=== PATIENT | female | born 1925 | race Caucasian/White ===

== ENCOUNTER 2016-12-11 05:53 | Emergency (ER) | payer MEDICARE, BC ==
[2016-12-11] MEDS ORDERED: OXYMETAZOLINE HCL 0.05% NASAL SPRAY 15 ML BOTTLE NASL ONE (06:22)
--- NOTE | 2016-12-11 06:27 | ER Document Report ---
ED General - General Mode of Arrival: Ambulatory Information source: Patient TRAVEL OUTSIDE OF THE [place] IN LAST 30 DAYS: No - HPI Patient complains to provider of: Nose Bleed Onset: Yesterday Onset/Duration: Sudden, Intermittent Associated symptoms: None <ASTRID TIJERINA - Last Filed: 12/11/16 06:40> <PAUL HALE - Last Filed: 12/11/16 07:40> - General Chief Complaint: Nose Bleed Stated Complaint: NOSE BLEED Time Seen by Provider: 12/11/16 06:12 Notes: Patient is an 89-year-old female presenting to the emergency department concerned. Onset yesterday early afternoon. Patient states that she called EMS , they treated her by pinching her nose, using ice, and aspirin, and the nosebleed resolved. Very early this morning when she got up to use the restroom her nose began to bleed again, worse than yesterday afternoon, so she decided to come into the emergency department via EMS. Patient states that she takes a baby aspirin and Coumadin daily. Patient reports falling 2 weeks ago on her face, she bled a little bit, but it quickly resolved. Other than the patient's nosebleed, patient states that she feels pretty well. (ASTRID TIJERINA) Past Medical History - General Information source: Patient - Social History Smoking Status: Never Smoker Family History: Reviewed & Not Pertinent - Past Medical History Cardiac Medical History: Reports: Hx Atrial Fibrillation, Hx Coronary Artery Disease GI Medical History: Reports: Other - Ventral hernia rupture <ASTRID TIJERINA - Last Filed: 12/11/16 06:40> Review of Systems - Review of Systems Constitutional: No symptoms reported EENT: See HPI, Nose discharge - Bloody nose- right nostril Cardiovascular: No symptoms reported Respiratory: No symptoms reported Gastrointestinal: No symptoms reported Genitourinary: No symptoms reported Female Genitourinary: No symptoms reported Musculoskeletal: No symptoms reported Skin: No symptoms reported Hematologic/Lymphatic: No symptoms reported Neurological/Psychological: No symptoms reported -: Yes All other systems reviewed and negative <ASTRID TIJREINA - Last Filed: 12/11/16 06:40> Physical Exam - General General appearance: Appears well, Alert - HEENT Head: Normocephalic, Atraumatic Eyes: Normal Pupils: PERRL Nasal: Other - Large blood clot noted inside the right nostril, not actively bleeding - Respiratory Respiratory status: No respiratory distress Chest status: Nontender Breath sounds: Normal Chest palpation: Normal - Cardiovascular Rhythm: Regular Heart sounds: Normal auscultation Murmur: No - Abdominal Inspection: Normal Tenderness: Nontender - Back Back: Normal, Nontender - Extremities General upper extremity: Normal inspection, Nontender General lower extremity: Normal inspection, Nontender - Neurological Neuro grossly intact: Yes Cognition: Normal Orientation: AAOx4 Brewer Coma Scale Eye Opening: Spontaneous Rashid Coma Scale Verbal: Oriented Rashid Coma Scale Motor: Obeys Commands Rashid Coma Scale Total: 15 Speech: Normal - Psychological Associated symptoms: Normal affect, Normal mood - Skin Skin Temperature: Warm Skin Moisture: Dry Skin Color: Ecchymosis - Bruising over right extremities secondary to fall a couple of weeks ago <ASTRID TIJERINA - Last Filed: 12/11/16 06:40> Course - Laboratory Result Diagrams: 12/11/16 06:27 12/11/16 06:27 <ASTRID TIJERINA - Last Filed: 12/11/16 06:40> - Laboratory Result Diagrams: 12/11/16 06:27 12/11/16 06:27 <PAUL HALE - Last Filed: 12/11/16 07:40> - Re-evaluation Re-evalutation: 12/11/16 06:59 INR is 4.57 12/11/16 06:59 PROCEEDURE: The first clot was removed from the right nostril. Afrin was sprayed into the nostril several times with the patient sniffing. Minimal bleeding was encountered. An Afrin-soaked cotton ball was fashioned into a torpedo shape and placed into the nostril on the right side. (PAUL HALE) - Vital Signs Vital signs: Temp Pulse Resp BP Pulse Ox 97.5 F 84 18 166/67 H 100 12/11/16 06:12 12/11/16 06:12 12/11/16 06:12 12/11/16 06:12 12/11/16 06:12 - Laboratory Laboratory results interpreted by me: 12/11/16 12/11/16 12/11/16 06:27 06:27 06:27 WBC 3.9 L RBC 2.61 L Hgb 10.0 L Hct 29.3 L MCV 113 H MCH 38.2 H RDW 18.5 H Seg Neutrophils % 79.6 H Monocytes % 1.9 L PT 45.1 H Sodium 133.2 L Chloride 96 L BUN 35 H Est GFR ( Amer) 55 L Est GFR (Non-Af Amer) 45 L Direct Bilirubin 0.6 H AST 56 H Albumin 3.3 L Discharge <SHAWNEE TIJERINAICA - Last Filed: 12/11/16 06:40> <PAUL HALE - Last Filed: 12/11/16 07:40> - Discharge Clinical Impression: Anterior epistaxis, Excessive anticoagulation Condition: Stable Disposition: HOME, SELF-CARE Additional Instructions: Nosebleed Instructions: There is a significant chance of re-bleeding following a nosebleed. Proper care makes this less likely. Do not touch the nose for 24 hours. Do not blow the nose forcefully for one week. After 24 hours, gently apply Vaseline ointment to both nostrils with the tip of a finger, three times a day, for one week. It's normal to have a bloody mucous discharge for a few days. If active bleeding recurs, blow all the blood from the nose, then sit quietly and pinch the nose as firmly as possible for 10 minutes. If this does not stop the bleeding, return for further care. If packing was left in the nose and it starts to come out of the nostril, either tuck it back in or cut it off. Don't pull it out. Return for recheck and removal of the packing when instructed. Persons with frequent nosebleeds should avoid aspirin (unless prescribed for another reason). Humidity in the bedroom, and petroleum jelly applied to the nostrils at night may help. Removed the Afrin-soaked cotton ball in about 1 hour. Do not take your Coumadin until you see your primary care provider tomorrow. Use the Afrin spray and Afrin soaked cotton balls as demonstrated here today if you have recurrence of bleeding. Put a small amount of Vaseline into each nostril 3 times daily and at bedtime for the next several days. Avoid blowing your nose, avoid bending over, avoid straining. Follow-up with Dr. Tucker tomorrow. RETURN TO THE EMERGENCY ROOM IF ANY NEW OR WORSENING SYMPTOMS. Referrals: KAILEY TUCKER MD [Primary Care Provider] - Follow up as needed Scribe Attestation: 12/11/16 07:40 I personally performed the services described in the documentation, reviewed and edited the documentation which was dictated to the scribe in my presence, and it accurately records my words and actions. (PAUL HALE) Scribe Documentation - Scribe Written by Eliot:: Eliot Francois, [id number] acting as scribe for :: Zia <ASTRID TIJERINA - Last Filed: 12/11/16 06:40>
[2016-12-11 06:50] LABS: ABSOLUTE LYMPHOCYTES (AUTO) 0.7 10^3/uL (0.5-4.7); ABSOLUTE MONOCYTES (AUTO) 0.1 10^3/uL (0.1-1.4); ABSOLUTE NEUT (AUTO) 3.1 10^3/uL (1.7-8.2); BASOPHILS % (AUTO) 0.8 % (0-2); EOSINOPHILS % (AUTO) 0.1 % (0-6); HEMATOCRIT 29.3 % (36.0-47.0); HGB HCT DIFFERENCE 0.7; LYMPHOCYTES % (AUTO) 17.6 % (13-45); MEAN CORPUSCULAR HEMOGLOBIN 38.2 pg (27.0-33.4); MEAN CORPUSCULAR VOLUME 113 fl (80-97); MONOCYTES % (AUTO) 1.9 % (3-13); RED BLOOD COUNT 2.61 10^6/uL (3.72-5.28); RED CELL DISTRIBUTION WIDTH 18.5 % (11.5-14.0); SEGMENTED NEUTROPHILS % (AUTO) 79.6 % (42-78); WHITE BLOOD COUNT 3.9 10^3/uL (4.0-10.5)
[2016-12-11 06:54] LABS: PROTHROMBIN TIME 45.1 SEC (11.4-15.4)
[2016-12-11 07:00] LABS: ALANINE AMINOTRANSFERASE 49 U/L (9-52); ALBUMIN 3.3 g/dL (3.5-5.0); ALKALINE PHOSPHATASE 81 U/L (38-126); ANION GAP 8 (5-19); ASPARTATE AMINO TRANSFERASE 56 U/L (14-36); BILIRUBIN,DIRECT 0.6 mg/dL (0.0-0.4); BILIRUBIN,TOTAL 1.1 mg/dL (0.2-1.3); BLOOD UREA NITROGEN 35 mg/dL (7-20); CALCIUM 9.2 mg/dL (8.4-10.2); CARBON DIOXIDE 29 mmol/L (22-30); CHLORIDE 96 mmol/L (98-107); CREATININE RESULT 1.13 mg/dL (0.52-1.25); GLUCOSE 99 mg/dL (75-110); POTASSIUM 3.9 mmol/L (3.6-5.0); SODIUM 133.2 mmol/L (137-145); TOTAL PROTEIN 8.2 g/dL (6.3-8.2)
[2016-12-11 07:33] LABS: ANISOCYTOSIS 2+; HYPOCHROMASIA SLIGHT; OVALOCYTES SLIGHT; POIKILOCYTOSIS SLIGHT; POLYCHROMASIA SLIGHT
[2016-12-11 08:10] VITALS: BP 152/70
== END 2016-12-11 08:10 | disposition home or self-care (01) ==
LOC: ER 05:53
PROC: 2Y41X5Z Packing of Nasal Region using Packing Material (ICD-10-PCS; principal; 2016-12-11)
DX: R04.0 Epistaxis (principal); I48.91 Unspecified atrial fibrillation; I25.10 Atherosclerotic heart disease of native coronary artery without angina pectoris; Z79.82 Long term (current) use of aspirin; Z79.01 Long term (current) use of anticoagulants; Z91.81 History of falling
CPT/HCPCS: 30901; 99283; 36415; 85025; 85610; 80053; J3490

== ENCOUNTER 2017-01-02 09:08 | Observation (INO) | payer MEDICARE, BC ==
--- NOTE | 2017-01-02 09:15 | ER Document Report ---
ED Dizziness/Weakness - General Chief Complaint: General Weakness Stated Complaint: WEAKNESS Time Seen by Provider: 01/02/17 09:13 Mode of Arrival: Ambulatory Information source: Patient Notes: Is an 89-year-old female who presents to the ER via EMS from home where she lives with her daughter for generalized weakness for the past 2 days. Patient has a history of getting weak with urinary tract infection. Daughter states that she cannot even help her move or lift her because she is so weak. Patient denies any pain anywhere, dysuria, shortness of breath, cough, other sick symptoms. Is currently on a compound of topical antibiotics for her left eye as she had conjunctivitis that was cultured and diagnosed with MRSA, she has been on these antibiotics for 2 weeks topically. TRAVEL OUTSIDE OF THE [place] IN LAST 30 DAYS: No - Related Data Allergies/Adverse Reactions: Sulfa (Sulfonamide Antibiotics) Allergy (Verified 01/02/17 09:14) Past Medical History - General Information source: Patient, Relative - Social History Smoking Status: Unknown if Ever Smoked Family History: Reviewed & Not Pertinent - Past Medical History Cardiac Medical History: Reports: Hx Atrial Fibrillation, Hx Coronary Artery Disease, Hx Hypertension Review of Systems - Review of Systems Constitutional: See HPI. denies: Chills, Fever EENT: See HPI Cardiovascular: No symptoms reported Respiratory: No symptoms reported Gastrointestinal: No symptoms reported Genitourinary: No symptoms reported Female Genitourinary: No symptoms reported Musculoskeletal: No symptoms reported Skin: No symptoms reported Hematologic/Lymphatic: No symptoms reported Neurological/Psychological: No symptoms reported Physical Exam - Vital signs Vitals: Resp Pulse Ox 24 H 100 01/02/17 09:10 01/02/17 09:10 - Notes Notes: PHYSICAL EXAMINATION: GENERAL: elderly, weak appearing but in no acute distress. HEAD: Atraumatic, normocephalic. EYES: Pupils equal round and reactive to light, extraocular movements intact, sclera anicteric, conjunctiva with watery discharge from left eye, eye closed with ointment ENT: ear canals without erythema or foreign body, TMs pearly macario with good bony landmarks, nares patent, oropharynx clear without exudates. Moist mucous membranes. Airway patent NECK: Normal range of motion, supple without lymphadenopathy LUNGS: CTAB and equal. No wheezes rales or rhonchi. HEART: Regular rate and rhythm without murmurs ABDOMEN: Soft, no tenderness. No guarding, no rebound BACK: no vertebral tenderness, normal ROM GI/: no CVA tenderness EXTREMITIES: Normal range of motion, no pitting edema. No cyanosis. NEUROLOGICAL: slower to answer questions, but alert and oriented x 3 Cranial nerves grossly intact. Normal sensory/motor exams. SKIN: Warm, Dry, normal turgor, no rashes or lesions noted Course - Re-evaluation Re-evalutation: 01/02/17 12:42 Is actually pretty unremarkable today with a lower than normal white blood cell count, low sodium which daughter states is normal for patient, normal chest x- ray and a normal urinalysis. Patient did present with a fever of 101.3F. Not have an explanation the patient's fever today, due to her age, generalized weakness and fever, Dr. Valenzuela, hospitalist agreed to admit patient at this time. - Vital Signs Vital signs: Temp Pulse Resp BP Pulse Ox 97.6 F 21 H 112/63 100 01/02/17 12:38 01/02/17 12:01 01/02/17 12:01 01/02/17 12:01 - Laboratory Result Diagrams: 01/02/17 09:28 01/02/17 09:28 Laboratory results interpreted by me: 01/02/17 01/02/17 01/02/17 09:28 09:28 09:55 WBC 2.3 L RBC 2.96 L Hgb 11.6 L Hct 33.4 L MCV 113 H MCH 39.3 H RDW 16.0 H Seg Neutrophils % 82.6 H Monocytes % 2.9 L Absolute Lymphocytes 0.3 L Sodium 129.9 L Chloride 97 L Est GFR ( Amer) 55 L Est GFR (Non-Af Amer) 46 L Direct Bilirubin 0.6 H AST 37 H Creatine Kinase 28 L Albumin 3.1 L Urine Protein 30 H Urine Blood SMALL H Discharge - Discharge Clinical Impression: Weakness Fever Qualifiers: Fever type: unspecified Qualified Code(s): R50.9 - Fever, unspecified Condition: Stable Disposition: ADMITTED INPATIENT Admitting Provider: Hospitalist Unit Admitted: Telemetry
[2017-01-02 09:48] LABS: ABSOLUTE LYMPHOCYTES (AUTO) 0.3 10^3/uL (0.5-4.7); ABSOLUTE MONOCYTES (AUTO) 0.1 10^3/uL (0.1-1.4); ABSOLUTE NEUT (AUTO) 1.9 10^3/uL (1.7-8.2); EOSINOPHILS % (AUTO) 0.2 % (0-6); HEMATOCRIT 33.4 % (36.0-47.0); HEMOGLOBIN 11.6 g/dL (12.0-15.5); HGB HCT DIFFERENCE 1.4; LYMPHOCYTES % (AUTO) 13.3 % (13-45); MEAN CORPUSCULAR HEMOGLOBIN 39.3 pg (27.0-33.4); MEAN CORPUSCULAR HGB CONC 34.8 g/dL (32.0-36.0); MONOCYTES % (AUTO) 2.9 % (3-13); RED BLOOD COUNT 2.96 10^6/uL (3.72-5.28); SEGMENTED NEUTROPHILS % (AUTO) 82.6 % (42-78); WHITE BLOOD COUNT 2.3 10^3/uL (4.0-10.5)
[2017-01-02 09:55] LABS: MEAN CORPUSCULAR VOLUME 113 fl (80-97)
[2017-01-02 10:06] LABS: ANISOCYTOSIS 1+
[2017-01-02 10:07] LABS: OVALOCYTES SLIGHT; POIKILOCYTOSIS SLIGHT; POLYCHROMASIA SLIGHT
[2017-01-02 10:11] LABS: ALANINE AMINOTRANSFERASE 27 U/L (9-52); ALBUMIN 3.1 g/dL (3.5-5.0); ALKALINE PHOSPHATASE 100 U/L (38-126); ANION GAP 8 (5-19); ASPARTATE AMINO TRANSFERASE 37 U/L (14-36); BILIRUBIN,DIRECT 0.6 mg/dL (0.0-0.4); BLOOD UREA NITROGEN 17 mg/dL (7-20); CALCIUM 8.5 mg/dL (8.4-10.2); CARBON DIOXIDE 25 mmol/L (22-30); CHLORIDE 97 mmol/L (98-107); CREATINE KINASE 28 U/L (30-135); CREATININE RESULT 1.12 mg/dL (0.52-1.25); GLUCOSE 110 mg/dL (75-110); POTASSIUM 4.3 mmol/L (3.6-5.0); SODIUM 129.9 mmol/L (137-145); TOTAL PROTEIN 7.5 g/dL (6.3-8.2)
[2017-01-02 10:21] LABS: CREATINE KINASE MB 0.55 ng/mL (<4.55); TROPONIN I 0.017 ng/mL
[2017-01-02 10:39] LABS: APPEARANCE,URINE CLEAR; BILIRUBIN,URINE NEGATIVE (NEGATIVE); GLUCOSE, URINE NEGATIVE (NEGATIVE); KETONES,URINE NEGATIVE (NEGATIVE); LEUKOCYTE ESTERASE,URINE NEGATIVE (NEGATIVE); NITRITE,URINE NEGATIVE (NEGATIVE); PROTEIN,URINE 30 mg/dL (NEGATIVE); URINE SPECIFIC GRAVITY 1.009; UROBILINOGEN,URINE NEGATIVE mg/dL (<2.0)
[2017-01-02 11:01] LABS: URINE BARBITURATES SCREEN NEGATIVE; URINE METHADONE SCREEN NEGATIVE; URINE OPIATES LOW NEGATIVE; URINE PHENCYCLIDINE SCREEN NEGATIVE
[2017-01-02] MEDS ORDERED: NORMAL SALINE 1000 ML 1,000 ML IV ONE (11:13)
[2017-01-02] MEDS ORDERED: ACETAMINOPHEN 325 MG TABLET PO ONE (11:15)
--- NOTE | 2017-01-02 11:51 | RADIOLOGY REPORT (SQ) ---
EXAM DESCRIPTION: CHEST SINGLE VIEW COMPLETED DATE/TIME: 01/02/2017 11:33 am REASON FOR STUDY: weakness, fever COMPARISON: None. EXAM PARAMETERS: NUMBER OF VIEWS: One view. TECHNIQUE: Single frontal radiographic view of the chest acquired. RADIATION DOSE: NA LIMITATIONS: None. FINDINGS: LUNGS AND PLEURA: No opacities, masses or pneumothorax. No pleural effusion. MEDIASTINUM AND HILAR STRUCTURES: No masses. Contour normal. HEART AND VASCULAR STRUCTURES: Heart normal in size. Normal vasculature. BONES: No acute findings. Bone anchors noted in the right humeral head. Osteopenia. HARDWARE: Left chest pacer. EKG leads overlie the chest. OTHER: No other significant finding. IMPRESSION: NO ACUTE RADIOGRAPHIC FINDING IN THE CHEST. TECHNICAL DOCUMENTATION: JOB ID: [id number]
[2017-01-02] MEDS ORDERED: ACETAMINOPHEN 325 MG TABLET PO PRN (17:00)
[2017-01-02] MEDS ORDERED: NORMAL SALINE 1000 ML 1,000 ML IV PRN (17:00)
[2017-01-02] MEDS ORDERED: ONDANSETRON HCL INJ/PF 4 MG/2 ML SDV IV PRN (17:06)
--- NOTE | 2017-01-02 17:19 | PDOC H&P ---
History of Present Illness Admission Date/PCP: 01/02/17 12:33 Patient complains of: Generalized weakness History of Present Illness: ALICIA POWELL is a 89 year old female, with history of hypertension, atrial fibrillation, and reported coronary artery disease presents to the hospital with generalized weakness for the past few days. There is no noted focal weakness nor any slurring of speech or swallowing difficulty. Because of the progressive weakness, the patient was brought to the hospital for evaluation. Daughter reports that she has urinary tract infection every time she is generally weak. In the emergency room she was found to have a fever of 101. WBC however was low. Urinalysis was inconclusive. Chest x-ray did not reveal any acute infiltrate. Patient denies any headache at all nor any neck pain. There is no nausea or vomiting, denies diarrhea dysuria urgency or frequency. There is no cough or shortness of breath. There is no sinus pressure or sore throat. Denies any vaginal discharge or bleeding as well. Denies any insect bites at all. Denies having any rash, nor any recent travel. Denies exposure to sick person with respiratory tract infection. Patient denies having any boils as well. No lower extremity pain or swelling. Denies being impacted. Daughter lives with her at the moment and he noted her to have some confusion. Past Medical History Cardiac Medical History: Reports: Atrial Fibrillation, Coronary Artery Disease, Hypertension EENT Medical History: Reports: Eyes - Recently treated for conjunctivitis Psychiatric Medical History: Reports: Depression Past Surgical History Past Surgical History: Reports: Other - No recent operations. Social History Information Source: Relative Smoking Status: Never Smoker Frequency of Alcohol Use: Rare Hx Recreational Drug Use: No Drugs: None Hx Prescription Drug Abuse: No - Advance Directive Resuscitation Status: Full Code Family History Family History: CAD, Hypertension Parental Family History Reviewed: Yes Children Family History Reviewed: Yes Sibling(s) Family History Reviewed.: Yes Medication/Allergy Home Medications: Aspirin [Ecotrin] 81 mg PO BID 01/02/17 Besifloxacin HCl [Besivance 0.6% Oph Susp 5 ml] 1 drop OU Q8H 01/02/17 Cholecalciferol (Vitamin D3) [Vitamin D3 3000 unit Tablet] 2,000 unit PO DAILY 01/02/17 Furosemide [Lasix 20 mg Tablet] 40 mg PO QAM 01/02/17 Lorazepam [Ativan 1 mg Tablet] 2 mg PO QHS 01/02/17 Multivitamin [Multivitamins] 1 each PO DAILY 01/02/17 Mupirocin [Bactroban 2% Ointment 22 gm] 1 applic OU QHS 01/02/17 Propranolol HCl [Inderal 20 mg Tablet] 20 mg PO Q6H 01/02/17 Allergies/Adverse Reactions: Sulfa (Sulfonamide Antibiotics) Allergy (Verified 01/02/17 09:14) Review of Systems Constitutional: PRESENT: fever(s), weakness - Generalized. ABSENT: chills, headache(s), night sweats, weight gain, weight loss Eyes: ABSENT: visual disturbances Ears: ABSENT: hearing changes Nose, Mouth, and Throat: ABSENT: mouth pain, sore throat Cardiovascular: ABSENT: chest pain, dyspnea on exertion, edema, orthropnea, palpitations Respiratory: ABSENT: cough, dyspnea, hemoptysis, sputum Gastrointestinal: ABSENT: abdominal pain, constipation, diarrhea, hematemesis, hematochezia, melena, nausea, vomiting Genitourinary: ABSENT: difficulty urinating, dysuria, hematuria Musculoskeletal: ABSENT: joint swelling Integumentary: ABSENT: pruritus, rash, wounds Neurological: ABSENT: abnormal gait, abnormal speech, confusion, dizziness, focal weakness, syncope, tremor(s), vertigo Psychiatric: ABSENT: anxiety, depression, homidical ideation, suicidal ideation Endocrine: ABSENT: cold intolerance, heat intolerance, polydipsia, polyphagia, polyuria Hematologic/Lymphatic: ABSENT: easy bleeding, easy bruising, lymphadenopathy Physical Exam Vital Signs: Temp Pulse Resp BP Pulse Ox 97.6 F 76 18 111/65 97 01/02/17 13:41 01/02/17 13:41 01/02/17 14:00 01/02/17 13:41 01/02/17 14:00 General appearance: PRESENT: no acute distress, cooperative, obese Head exam: PRESENT: atraumatic, normocephalic Eye exam: PRESENT: conjunctival injection - Mildly, EOMI, PERRLA, other - There is some mild drainage noted. ABSENT: scleral icterus Ear exam: PRESENT: normal external ear exam. ABSENT: drainage Mouth exam: PRESENT: dry mucosa, neck supple, tongue midline Throat exam: ABSENT: post pharyngeal erythema, tonsillar erythema Neck exam: ABSENT: carotid bruit, JVD, lymphadenopathy, thyromegaly Respiratory exam: PRESENT: clear to auscultation shay - Poor effort, other - No axillary adenopathy noted. ABSENT: rales, rhonchi, wheezes Cardiovascular exam: PRESENT: RRR. ABSENT: diastolic murmur, rubs, systolic murmur Pulses: PRESENT: normal dorsalis pedis pul Vascular exam: PRESENT: normal capillary refill GI/Abdominal exam: PRESENT: normal bowel sounds, soft, other - No inguinal adenopathy. ABSENT: distended, guarding, mass, organolmegaly, rebound, tenderness Rectal exam: PRESENT: deferred Extremities exam: PRESENT: full ROM, other - No redness. ABSENT: calf tenderness, clubbing, pedal edema Neurological exam: PRESENT: alert, awake, oriented to situation, CN II-XII grossly intact. ABSENT: motor sensory deficit Psychiatric exam: PRESENT: appropriate affect, normal mood. ABSENT: homicidal ideation, suicidal ideation Skin exam: PRESENT: dry, intact, warm. ABSENT: cyanosis, rash Results Laboratory Results: 01/02/17 13:17 Lactic Acid 1.1 Impressions: Chest X-Ray 01/02/17 11:13 IMPRESSION: NO ACUTE RADIOGRAPHIC FINDING IN THE CHEST. Assessment & Plan - Diagnosis (1) Hyponatremia Is this a current diagnosis for this admission?: Yes (2) Weakness Is this a current diagnosis for this admission?: Yes (3) Fever Qualifiers: Fever type: unspecified Qualified Code(s): R50.9 - Fever, unspecified Is this a current diagnosis for this admission?: Yes (4) Essential hypertension Is this a current diagnosis for this admission?: Yes (5) Coronary artery disease Qualifiers: Coronary Disease-Associated Artery/Lesion type: [place] artery [place] vs. transplanted heart: [place] heart Associated angina: without angina Qualified Code(s): I25.10 - Atherosclerotic heart disease of [place] coronary artery without angina pectoris Is this a current diagnosis for this admission?: Yes (6) Chronic atrial fibrillation Is this a current diagnosis for this admission?: Yes - Time Time Spent: 50 to 70 Minutes - Plan Summary Plan Summary: The patient will be admitted to observation. We will hydrate the patient with normal saline. Urine culture has been sent to the emergency room. We will follow results. I will hold any antibiotic for now. Patient may have acute viral syndrome. I will hold her diuretics. Continue her beta-ivan. I will put her on antiplatelet therapy for her A. fib. DVT prophylaxis with Lovenox will be placed. I will check a KUB for impaction. Further testing depends on the initial evaluations outlined above.
[2017-01-02] MEDS: VANCOMYCIN OU SCH ×3 (17:51→21:44)
--- NOTE | 2017-01-02 18:40 | RADIOLOGY REPORT (SQ) ---
EXAM DESCRIPTION: KUB/ABDOMEN (SINGLE VIEW) COMPLETED DATE/TIME: 01/02/2017 6:31 pm REASON FOR STUDY: fecal impaction COMPARISON: None. NUMBER OF VIEWS: One view. TECHNIQUE: Supine radiographic image of the abdomen acquired. LIMITATIONS: None. FINDINGS: BOWEL GAS PATTERN: There is a nonobstructive bowel gas pattern. There is stool in the rec [place] but not no large amount of stool in the rest of the colon. CALCIFICATIONS: No suspicious calcifications. SOFT TISSUES: No gross mass or suggestion of organomegaly. HARDWARE: None in the abdomen. BONES: No acute fracture. No worrisome bone lesions. OTHER: No other significant finding. IMPRESSION: There is stool in the rectum that may represent fecal impaction. TECHNICAL DOCUMENTATION: JOB ID: [id number] [employer]- All Rights Reserved
[2017-01-02] MEDS: ASPIRIN 81 MG TABLET, ENT COATED PO SCH (19:56)
[2017-01-02] MEDS: DOCUSATE SODIUM 100 MG CAPSULE PO SCH (19:56)
--- NOTE | 2017-01-02 21:33 | EKG REPORT ---
SEVERITY:- ABNORMAL ECG - ATRIAL FIBRILLATION : Confirmed by: Adelaida Acevedo 02-Jan-2017 21:32:19
[2017-01-02] MEDS: LORAZEPAM 1 MG TABLET PO SCH (21:44)
[2017-01-02] MEDS: BESIFLOXACIN HCL 0.6% OPH SUSP 5 ML BOTTLE OU SCH (21:45)
[2017-01-02] MEDS: PROPRANOLOL HCL 20 MG TABLET PO SCH (23:37)
[2017-01-03] MEDS: BESIFLOXACIN HCL 0.6% OPH SUSP 5 ML BOTTLE OU SCH ×3 (06:14→21:48)
[2017-01-03] MEDS: PROPRANOLOL HCL 20 MG TABLET PO SCH ×3 (06:14→18:17)
[2017-01-03] MEDS: VANCOMYCIN OU SCH ×6 (06:15→21:48)
[2017-01-03] MEDS: LANSOPRAZOLE 30 MG TAB.RAP.DR PO SCH (06:16)
[2017-01-03 07:11] LABS: HEMATOCRIT 28.7 % (36.0-47.0); MEAN CORPUSCULAR HEMOGLOBIN 39.2 pg (27.0-33.4); MEAN CORPUSCULAR HGB CONC 34.8 g/dL (32.0-36.0); RED BLOOD COUNT 2.55 10^6/uL (3.72-5.28); RED CELL DISTRIBUTION WIDTH 15.8 % (11.5-14.0)
[2017-01-03 07:19] LABS: ANION GAP 6 (5-19); BLOOD UREA NITROGEN 17 mg/dL (7-20); CALCIUM 7.7 mg/dL (8.4-10.2); CARBON DIOXIDE 22 mmol/L (22-30); CHLORIDE 103 mmol/L (98-107); CREATININE RESULT 1.02 mg/dL (0.52-1.25); GLUCOSE 87 mg/dL (75-110); POTASSIUM 3.8 mmol/L (3.6-5.0); SODIUM 131.4 mmol/L (137-145)
[2017-01-03 07:32] LABS: HGB HCT DIFFERENCE 1.3
[2017-01-03 07:33] LABS: MEAN CORPUSCULAR VOLUME 113 fl (80-97); WHITE BLOOD COUNT 1.6 10^3/uL (4.0-10.5)
[2017-01-03] MEDS ORDERED: NORMAL SALINE 1000 ML 1,000 ML IV PRN (08:36)
--- NOTE | 2017-01-03 08:36 | PDOC PROGRESS REPORT ---
Subjective Progress Note for:: 01/03/17 Subjective:: Patient felt slightly better today. No nausea or vomiting. No reported temperature spikes. Patient denies feeling dizzy at this time. X-ray of the abdomen revealed possibility of impaction. Conjunctivitis still present but improving. There is no shortness of breath or chest pain, no PND orthopnea, no increasing edema. Physical Exam Vital Signs: Temp Pulse Resp BP Pulse Ox 99.8 F 90 17 115/59 L 97 01/03/17 08:06 01/03/17 08:06 01/03/17 08:06 01/03/17 08:06 01/03/17 08:06 Intake & Output 01/02/17 01/03/17 01/04/17 06:59 06:59 06:59 Intake Total 1441 Balance 1441 Weight 77.1 kg General appearance: PRESENT: no acute distress, cooperative, obese Head exam: PRESENT: normocephalic Eye exam: PRESENT: EOMI Mouth exam: PRESENT: moist, neck supple Neck exam: ABSENT: JVD Respiratory exam: PRESENT: clear to auscultation shay. ABSENT: rhonchi, wheezes Cardiovascular exam: PRESENT: RRR, systolic murmur - Left sternal border. ABSENT: gallop GI/Abdominal exam: PRESENT: soft. ABSENT: distended, tenderness Extremities exam: PRESENT: other - Trace pretibial edema Neurological exam: PRESENT: alert, awake, oriented to situation Skin exam: PRESENT: dry, warm. ABSENT: cyanosis Results Laboratory Results: 01/03/17 06:28 01/03/17 06:28 01/02/17 01/03/17 01/03/17 13:17 06:28 06:28 WBC 1.6 L RBC 2.55 L Hgb 10.0 L Hct 28.7 L MCV 113 H MCH 39.2 H MCHC 34.8 RDW 15.8 H Plt Count 177 Sodium 131.4 L Potassium 3.8 Chloride 103 Carbon Dioxide 22 Anion Gap 6 BUN 17 Creatinine 1.02 Est GFR ( Amer) > 60 Est GFR (Non-Af Amer) 51 L Glucose 87 Lactic Acid 1.1 Calcium 7.7 L TSH 01/03/17 06:28 WBC RBC Hgb Hct MCV MCH MCHC RDW Plt Count Sodium Potassium Chloride Carbon Dioxide Anion Gap BUN Creatinine Est GFR ( Amer) Est GFR (Non-Af Amer) Glucose Lactic Acid Calcium TSH 2.17 Impressions: Chest X-Ray 01/02/17 11:13 IMPRESSION: NO ACUTE RADIOGRAPHIC FINDING IN THE CHEST. KUB X-Ray 01/02/17 17:00 IMPRESSION: There is stool in the rectum that may represent fecal impaction. Assessment & Plan - Diagnosis (1) Hyponatremia Is this a current diagnosis for this admission?: Yes (2) Weakness Is this a current diagnosis for this admission?: Yes (3) Fever Qualifiers: Fever type: unspecified Qualified Code(s): R50.9 - Fever, unspecified Is this a current diagnosis for this admission?: Yes (4) Essential hypertension Is this a current diagnosis for this admission?: Yes (5) Coronary artery disease Qualifiers: Coronary Disease-Associated Artery/Lesion type: [place] artery [place] vs. transplanted heart: [place] heart Associated angina: without angina Qualified Code(s): I25.10 - Atherosclerotic heart disease of [place] coronary artery without angina pectoris Is this a current diagnosis for this admission?: Yes (6) Chronic atrial fibrillation Is this a current diagnosis for this admission?: Yes - Time Time Spent with patient: 25-34 minutes - Plan Summary Plan Summary: Out of bed. Begin physical therapy. Try Dulcolax suppository. Continue intravenous fluid. Decrease rate however. Fever is trending down. Continue supportive care. I will continue to hold any antibiotics at this time as fever is improving.
[2017-01-03] MEDS ORDERED: BISACODYL 10 MG SUPP.RECT PR ONE (09:00)
[2017-01-03] MEDS: DOCUSATE SODIUM 100 MG CAPSULE PO SCH ×2 (11:04→18:17)
[2017-01-03] MEDS: ASPIRIN 81 MG TABLET, ENT COATED PO SCH ×2 (11:04→18:17)
[2017-01-03] MEDS: ENOXAPARIN SODIUM INJ 40 MG/0.4 ML DISP.SYRIN SUBCUT SCH (11:04)
[2017-01-03] MEDS: LORAZEPAM 1 MG TABLET PO SCH (21:48)
[2017-01-04] MEDS: PROPRANOLOL HCL 20 MG TABLET PO SCH ×3 (00:30→11:51)
[2017-01-04 05:23] LABS: ANION GAP 6 (5-19); BLOOD UREA NITROGEN 17 mg/dL (7-20); CALCIUM 7.7 mg/dL (8.4-10.2); CARBON DIOXIDE 21 mmol/L (22-30); CHLORIDE 105 mmol/L (98-107); CREATININE RESULT 0.95 mg/dL (0.52-1.25); GLUCOSE 77 mg/dL (75-110); POTASSIUM 3.7 mmol/L (3.6-5.0); SODIUM 132.3 mmol/L (137-145)
[2017-01-04] MEDS: LANSOPRAZOLE 30 MG TAB.RAP.DR PO SCH (06:08)
[2017-01-04] MEDS: BESIFLOXACIN HCL 0.6% OPH SUSP 5 ML BOTTLE OU SCH (06:08)
--- NOTE | 2017-01-04 09:03 | PDOC DISCHARGE SUMMARY ---
General - Admit/Disc Date/PCP Admission Date/Primary Care Provider: 01/02/17 12:33 Discharge Date: 01/04/17 - Discharge Diagnosis (1) Hyponatremia Is this a current diagnosis for this admission?: Yes (2) Weakness Is this a current diagnosis for this admission?: Yes (3) Fever Is this a current diagnosis for this admission?: YesSummary: Probably secondary to fecal impaction/obstipation (4) Essential hypertension Is this a current diagnosis for this admission?: Yes (5) Coronary artery disease Is this a current diagnosis for this admission?: Yes (6) Chronic atrial fibrillation Is this a current diagnosis for this admission?: Yes - Additional Information Resuscitation Status: Full Code Discharge Diet: Cardiac Discharge Activity: Activity As Tolerated, Balance Activity w/Rest Home Medications: Aspirin [Ecotrin] 81 mg PO BID 01/02/17 Besifloxacin HCl [Besivance 0.6% Oph Susp 5 ml] 1 drop OU Q8H 01/02/17 Cholecalciferol (Vitamin D3) [Vitamin D3 3000 unit Tablet] 2,000 unit PO DAILY 01/02/17 Furosemide [Lasix 20 mg Tablet] 40 mg PO QAM 01/02/17 Multivitamin [Multivitamins] 1 each PO DAILY 01/02/17 Mupirocin [Bactroban 2% Ointment 22 gm] 1 applic OU QHS 01/02/17 Propranolol HCl [Inderal 20 mg Tablet] 20 mg PO Q6H 01/02/17 Docusate Sodium [Colace 100 mg Capsule] 100 mg PO BID capsule 01/04/17 Lorazepam [Ativan 1 mg Tablet] 1 tab PO QHS #0 01/04/17 Additional Information: Follow-up final report of the urine and blood cultures outpatient with primary care physician. History of Present Illness Patient complains of: Generalized weakness History of Present Illness: ALICIA POWELL is a 89 year old female, with history of hypertension, atrial fibrillation, and reported coronary artery disease presents to the hospital with generalized weakness for the past few days. There is no noted focal weakness nor any slurring of speech or swallowing difficulty. Because of the progressive weakness, the patient was brought to the hospital for evaluation. Daughter reports that she has urinary tract infection every time she is generally weak. In the emergency room she was found to have a fever of 101. WBC however was low. Urinalysis was inconclusive. Chest x-ray did not reveal any acute infiltrate. Patient denies any headache at all nor any neck pain. There is no nausea or vomiting, denies diarrhea dysuria urgency or frequency. There is no cough or shortness of breath. There is no sinus pressure or sore throat. Denies any vaginal discharge or bleeding as well. Denies any insect bites at all. Denies having any rash, nor any recent travel. Denies exposure to sick person with respiratory tract infection. Patient denies having any boils as well. No lower extremity pain or swelling. Denies being impacted. Daughter lives with her at the moment and he noted her to have some confusion. Hospital Course Hospital Course: The patient was admitted to telemetry. The patient was hydrated with normal saline. Patient had a urine culture and blood culture done so far negative. She has a chest x-ray that was negative for any infiltrate. Patient denies any symptoms of respiratory tract infection nor any skin infection. Likewise she denies symptoms of gastrointestinal infection. She denies vaginal discharge as well. She denies lower extremity swelling. Eventually with hydration the patient's fever improved. KUB revealed possible fecal impaction. Patient given suppository but she refused. Eventually with hydration she had a good bowel movement. In terms of the chronic atrial fibrillation she is on aspirin and has refused to be on any other blood thinner. The patient improved the rest of the hospital stays unremarkable. In terms of her hyponatremia if it improves with hydration with normal saline. Patient was advised to discontinue her Lasix. The rest of the hospital stays unremarkable. Physical therapy was instituted and to continue at home. Physical Exam Vital Signs: Temp Pulse Resp BP Pulse Ox 99.0 F 82 17 128/84 H 95 01/04/17 04:17 01/04/17 07:00 01/04/17 04:17 01/04/17 04:17 01/04/17 04:17 Intake & Output 01/03/17 01/04/17 01/05/17 06:59 06:59 06:59 Intake Total 1441 2342 Balance 1441 2342 Weight 77.1 kg 77 kg General appearance: PRESENT: no acute distress, cooperative, obese Head exam: PRESENT: normocephalic Eye exam: PRESENT: EOMI Mouth exam: PRESENT: moist, neck supple Neck exam: ABSENT: JVD Respiratory exam: PRESENT: clear to auscultation shay. ABSENT: rhonchi, wheezes Cardiovascular exam: PRESENT: irregular rhythm, systolic murmur - Left sternal border. ABSENT: gallop GI/Abdominal exam: PRESENT: hypoactive bowel sounds, soft. ABSENT: distended, tenderness Extremities exam: PRESENT: other - Trace pretibial edema Neurological exam: PRESENT: alert, awake, oriented to situation Skin exam: PRESENT: dry, warm. ABSENT: cyanosis Results Laboratory Results: 01/03/17 06:28 01/04/17 04:13 01/04/17 04:13 Sodium 132.3 L Potassium 3.7 Chloride 105 Carbon Dioxide 21 L Anion Gap 6 BUN 17 Creatinine 0.95 Est GFR ( Amer) > 60 Est GFR (Non-Af Amer) 55 L Glucose 77 Calcium 7.7 L Impressions: Chest X-Ray 01/02/17 11:13 IMPRESSION: NO ACUTE RADIOGRAPHIC FINDING IN THE CHEST. KUB X-Ray 01/02/17 17:00 IMPRESSION: There is stool in the rectum that may represent fecal impaction. Qualifiers PATEINT BEING DISCHARGED WITH ANY OF THE FOLLOWING DIAGNOSIS?: No Plan Discharge Plan: Follow-up with primary care physician in 1 week. Time Spent: Less than 30 Minutes
[2017-01-04] MEDS: ENOXAPARIN SODIUM INJ 40 MG/0.4 ML DISP.SYRIN SUBCUT SCH (09:52)
[2017-01-04] MEDS: DOCUSATE SODIUM 100 MG CAPSULE PO SCH (09:53)
[2017-01-04] MEDS: ASPIRIN 81 MG TABLET, ENT COATED PO SCH (09:53)
[2017-01-04] MEDS: VANCOMYCIN OU SCH (09:53)
[2017-01-04 12:06] VITALS: BP 121/54
[2017-01-06 14:24] LABS: PATH REVIEW PATHOLOGIST REVIEWED
[2017-01-06 14:24] LABS: PATH REVIEW PATHOLOGIST REVIEWED
== END 2017-01-04 13:05 | disposition home health service (06) ==
LOC: ER 09:08 → EH 12:33 → INTOOBSV 12:33 → 5 14:13
PROVIDERS: ADMIT Family Medicine; ATTEND Family Medicine
DX: E87.1 Hypo-osmolality and hyponatremia (principal); R53.1 Weakness; R50.9 Fever, unspecified; I10 Essential (primary) hypertension; I25.10 Atherosclerotic heart disease of native coronary artery without angina pectoris; I48.2 Chronic atrial fibrillation; R41.0 Disorientation, unspecified; R60.0 Localized edema; Z79.899 Other long term (current) drug therapy; Z79.82 Long term (current) use of aspirin; Z87.440 Personal history of urinary (tract) infections; Z82.49 Family history of ischemic heart disease and other diseases of the circulatory system; Z86.14 Personal history of Methicillin resistant Staphylococcus aureus infection
CPT/HCPCS: 93005; 99285; 96360; 51701; 36415 ×3; 87040; 87086; 82553; 82550; 83605; 84443; 85025; 85027; 80048 ×2; 80053; 81001; 84484; 80307; 71010; 74000; 93010; 97163; G0378 ×3; A9270 ×14; J1650 ×2; J3490; J7030 ×2; G8978; G8979